=== PATIENT | female | born 1940 | race Native Hawaiian/Other Pacific Islander ===

== ENCOUNTER 2016-12-25 18:45 | Inpatient (IN) | payer OTHER ==
[2016-12-25] MEDS ORDERED: Ipratropium 0.02% Inhal Soln (0.5 mg/2.5 ml) UD IH STA ×2 (19:12→20:58)
[2016-12-25] MEDS ORDERED: Levalbuterol 1.25 MG/3 ML Inhal Soln UD IH STA (19:12)
[2016-12-25] MEDS ORDERED: Sodium Chloride 0.9% 1,000 ML IV STA (19:12)
--- NOTE | 2016-12-25 19:12 | ED PDOC ---
Arrival/HPI - General Chief Complaint: Shortness Of Breath Time Seen by Provider: 12/25/16 18:52 Historian: Patient - History of Present Illness Narrative History of Present Illness (Text): 12/25/16 19:07 Criss Lopez is a 76 year old female, whose past medical history includes asthma and remote history of hypertension and angina, not on any medication, who presents to the ED complaining of cough since yesterday. Patient also reports associated shortness of breath and some chills. Patient denies any fever , chest pain, lower extremity swelling, nausea, vomiting, diarrhea, urinary symptoms, back pain, neck pain, headache, dizziness, or any other complaints. Patient is visiting daughter from [place]. Time/Duration: Other (yesterday) Symptom Onset: Gradual Symptom Course: Unchanged Activities at Onset: Rest, Light Context: Home Past Medical History - Provider Review Nursing Documentation Reviewed: Yes - Infectious Disease Hx of Infectious Diseases: None - Reproductive Menopause: Yes - Pulmonary Hx Asthma: Yes - Psychiatric Hx Substance Use: No - Surgical History Other/Comment: x 2, sinus sx - Anesthesia Hx Anesthesia: Yes Hx Anesthesia Reactions: No Hx Malignant Hyperthermia: No Family/Social History - Physician Review Nursing Documentation Reviewed: Yes Family/Social History: No Known Family HX Smoking Status: Never Smoked Hx Alcohol Use: No Hx Substance Use: No Allergies/Home Meds Allergies/Adverse Reactions: Allergies No Known Allergies Allergy (Verified 12/25/16 18:54) Home Medications: Home Meds Medication Instructions Recorded Confirmed No Known Home Med 12/25/16 12/25/16 Review of Systems - Physician Review All systems were reviewed & negative as marked: Yes - Review of Systems Constitutional: Other (+chills) Eyes: Normal ENT: Normal Respiratory: SOB, Cough Cardiovascular: absent: Chest Pain Gastrointestinal: absent: Abdominal Pain, Diarrhea, Nausea, Vomiting Genitourinary Female: Normal. absent: Dysuria, Frequency, Hematuria, Urine Output Changes Musculoskeletal: Normal. absent: Back Pain, Neck Pain Skin: Normal. absent: Rash Neurological: Normal. absent: Headache, Dizziness Endocrine: Normal Hemo/Lymphatic: Normal Psychiatric: Normal Physical Exam Vital Signs Reviewed: Yes Vital Signs Temp Pulse Resp BP Pulse Ox 12/25/16 20:34 99 F 78 20 122/78 99 12/25/16 19:54 101.4 F H 12/25/16 19:13 101.4 F H 12/25/16 19:00 19 12/25/16 18:53 99.3 F 102 H 18 127/78 100 Temperature: Afebrile Blood Pressure: Normal Pulse: Tachycardic Respiratory Rate: Tachypneic (mild) Appearance: Positive for: Well-Appearing, Non-Toxic, Comfortable Pain Distress: None Mental Status: Positive for: Alert and Oriented X 3 - Systems Exam Head: Present: Atraumatic, Normocephalic Pupils: Present: PERRL Conjunctiva: Present: Normal Mouth: Present: Moist Mucous Membranes Pharnyx: Present: Normal. No: ERYTHEMA Neck: Present: Normal Range of Motion Respiratory/Chest: Present: Wheezes (Some scattered wheezing bilaterally), Rhonchi (Occasional rhonchi), Tachypneic (minimal). No: Accessory Muscle Use Cardiovascular: Present: Normal S1, S2, Tachycardic. No: Murmurs Abdomen: Present: Normal Bowel Sounds. No: Tenderness, Distention, Peritoneal Signs Back: Present: Normal Inspection Upper Extremity: Present: Normal Inspection. No: Cyanosis, Edema Lower Extremity: Present: Normal Inspection. No: Edema Neurological: Present: GCS=15, CN II-XII Intact, Speech Normal Skin: Present: Warm, Dry, Normal Color. No: Rashes Psychiatric: Present: Alert, Oriented x 3, Normal Insight, Normal Concentration Medical Decision Making ED Course and Treatment: 12/25/16 19:07 Impression: 76 year old female complaining of cough, difficulty breath, and chills since yesterday. Plan: -- EKG -- CXR -- Labs, VBG, BNP, cardiac enzymes, lipase, blood cultures -- Urinalysis, urine cultures -- Rapid influenza -- IV fluids -- Tylenol -- Xoponex -- Atrovent -- Solu-medrol -- Reassess and disposition Progress Notes: Reviewed EKG, NSR at [address]-segment elevations or depressions, no T-wave inversions, normal intervals. Normal axis. 12/25/16 20:14 Reviewed radiology, Chest X-ray shows no active disease. 12/25/16 20:55 Patient's labs and CXR are unremarkable. She is continuing to wheeze despite nebs and steroids and presented with underlying fever. Will need further observation in the hospital. Case discussed with Dr. Stovall, who is aware and agrees with plan. Accepts pt in to her service. Pt will go to [facility] observation for asthma exacerbation and fever. - Lab Interpretations Lab Results: 12/25/16 19:35 12/25/16 19:35 Lab Results 12/25/16 19:40: pO2 55, VBG pH 7.36, VBG pCO2 52.0, VBG HCO3 29.4 H, VBG Total CO2 31.0 H, VBG O2 Sat (Calc) 89.0 H, VBG Base Excess 2.8 H, VBG Potassium 3.5 L , Sodium 137.0, Chloride 103.0, Glucose 102, Lactate 1.3, FiO2 21.0, Venous Blood Potassium 3.5 L 12/25/16 19:35: WBC 6.6, RBC 4.28, Hgb 12.7, Hct 37.5, MCV 87.6, MCH 29.7, MCHC 33.9, RDW 12.8, Plt Count 172, MPV 9.2, Gran % 85.5 H, Lymph % (Auto) 7.3 L, Bryan % (Auto) 5.2, Eos % (Auto) 1.7, Baso % (Auto) 0.3, Gran # 5.61, Lymph # 0.5 L, Bryan # 0.3, Eos # 0.1, Baso # 0.02, ESR Pending, PT 10.5, INR 0.97, APTT 29.0, Sodium 133, Chloride 98, Potassium 3.5 L, Carbon Dioxide 28, Anion Gap 11 , BUN 15, Creatinine 0.8, Est GFR ( Amer) > 60, Est GFR (Non-Af Amer) > 60, Random Glucose 104, Calcium 8.9, Phosphorus 3.1, Magnesium 1.8, Total Bilirubin 0.5, AST 31, ALT 17, Alkaline Phosphatase 75, Lactate Dehydrogenase 433, Total Creatine Kinase 149, Troponin I 0.01, NT-Pro-B Natriuret Pep 147, Total Protein 7.0, Albumin 3.8, Globulin 3.1, Albumin/Globulin Ratio 1.2, Lipase 102, Plasma Cortisol PM Pending 12/25/16 19:30: Influenza Typ A,B (EIA) Negative for flu a/b I have reviewed the lab results: Yes - RAD Interpretation Radiology Orders: 12/25/16 18:58 CHEST PORTABLE [RAD] Stat Chief Engineering Division: ED Physician - EKG Interpretation Interpreted by ED Physician: Yes Type: 12 lead EKG - Medication Orders Current Medication Orders: Azithromycin 500 mg/ (Azithromycin) 250 mls @ 167 mls/hr IVPB STAT STA PRN Reason: Protocol Stop: 12/25/16 22:28 Ceftriaxone Sodium (Rocephin 1 Gram Ivpb) 100 mls @ 200 mls/hr IV ONCE STA PRN Reason: Protocol Stop: 12/25/16 21:28 Methylprednisolone (Solu-Medrol) 60 mg IVP Q8H FIGUEROA Discontinued Medications Acetaminophen (Tylenol 325mg Tab) 975 mg PO STAT STA Stop: 12/25/16 19:13 Last Admin: 12/25/16 19:54 Dose: 975 MG MAR Pain/Vitals Document 12/25/16 19:54 R (Rec: 12/25/16 19:54 R [id number]) Vitals Temperature (97.6 F-99.6 F) 101.4 F Temperature Source Rectal Sodium Chloride (Sodium Chloride 0.9%) 1,000 mls @ 999 mls/hr IV .Q1H1M STA Stop: 12/25/16 20:12 Last Admin: 12/25/16 19:53 Dose: 999 MLS/HR eMAR Start Stop Document 12/25/16 19:53 RJR (Rec: 12/25/16 19:53 R [id number]) Intravenous Solution Start Date 12/25/16 Start Time 19:53 End Date 12/25/16 End time 21:53 Total Infusion Time 120 Ipratropium [place] (Atrovent) 0.5 mg IH STAT STA Stop: 12/25/16 19:13 Last Admin: 12/25/16 19:53 Dose: 0.5 MG Ipratropium [place] (Atrovent) 0.5 mg IH STAT STA Stop: 12/25/16 20:59 Levalbuterol HCl (Xopenex) 1.25 mg IH STAT STA Stop: 12/25/16 19:13 Last Admin: 12/25/16 19:54 Dose: 1.25 MG Levalbuterol HCl (Xopenex) 0.63 mg IH ONCE STA Stop: 12/25/16 20:59 Methylprednisolone (Solu-Medrol) 125 mg IVP STAT STA Stop: 12/25/16 19:13 Last Admin: 12/25/16 19:54 Dose: 125 MG IVP Administration Document 12/25/16 19:54 SIMON (Rec: 12/25/16 19:54 [email or web address] [id number]) Charges for Administration # of IVP Administrations 1 Potassium Chloride (Potassium Chloride Oral Soln) 40 meq PO STAT STA Stop: 12/25/16 20:58 - Scribe Statement The provider has reviewed the documentation as recorded by the Scribe Odalis Almanza All medical record entries made by the Scribe were at my direction and personally dictated by me. I have reviewed the chart and agree that the record accurately reflects my personal performance of the history, physical exam, medical decision making, and the department course for this patient. I have also personally directed, reviewed, and agree with the discharge instructions and disposition. Disposition/Present on Arrival - Present on Arrival Any Indicators Present on Arrival: No History of DVT/PE: No History of Uncontrolled Diabetes: No Urinary Catheter: No History of Decub. Ulcer: No History Surgical Site Infection Following: None - Disposition Have Diagnosis and Disposition been Completed?: Yes Diagnosis: Exacerbation of asthma, Fever Disposition: HOSPITALIZED Disposition Time: 21:10 Patient Plan: Observation Condition: FAIR
[2016-12-25 19:55] LABS: ADD MANUAL DIFF? NO
[2016-12-25 19:58] LABS: VENOUS BLOOD GAS BASE EXCESS 2.8 mmol/L (0.0-2.0); VENOUS BLOOD PH 7.36 (7.32-7.43)
[2016-12-25 19:59] LABS: BASO # 0.02 K/mm3 (0.0-2.0); BASO % 0.3 % (0.0-3.0); EOS # 0.1 (0.0-0.7); EOS % 1.7 % (1.5-5.0); GRAN # 5.61 (1.4-6.5); GRAN % 85.5 % (50.0-68.0); HEMATOCRIT 37.5 % (36.0-48.0); LYMPH # 0.5 (1.2-3.4); LYMPH % 7.3 % (22.0-35.0); MEAN CELL VOLUME 87.6 fL (80.0-105.0); MEAN CORPUSCULAR HEMOGLOBIN 29.7 pg (25.0-35.0); MEAN CORPUSCULAR HGB CONC 33.9 g/dl (31.0-37.0); MEAN PLATELET VOLUME 9.2 fl (7.0-11.0); MONO # 0.3 (0.1-0.6); MONO % 5.2 % (1.0-6.0); PLATELET COUNT 172 10^3/uL (120.0-450.0); RED CELL DISTRIBUTION WIDTH 12.8 % (11.5-14.5); WHITE BLOOD COUNT 6.6 10^3/ul (4.5-11.0)
[2016-12-25 20:10] LABS: ALB/GLOB RATIO 1.2 (1.1-1.8); ALKALINE PHOSPHATASE 75 U/L (38-133); ALT/SGPT 17 U/L (7-56); AST/SGOT 31 U/L (15-39); BILIRUBIN,TOTAL 0.5 mg/dL (0.2-1.3); BLOOD UREA NITROGEN 15 mg/dL (7-21); CALCIUM 8.9 mg/dL (8.4-10.5); CARBON DIOXIDE 28 mmol/L (21-33); CHLORIDE 98 mmol/L (98-107); GFR AFRICAN-AMERICAN > 60; GLUCOSE,RANDOM 104 mg/dL (70-110); INR 0.97 (0.93-1.08); LIPASE 102 U/L (23-300); MAGNESIUM 1.8 mg/dL (1.7-2.2); PHOSPHOROUS 3.1 mg/dL (2.5-4.5); POTASSIUM 3.5 mmol/L (3.6-5.0); SODIUM 133 mmol/L (132-148)
[2016-12-25 20:23] LABS: TROPONIN I 0.01 ng/mL
[2016-12-25] MEDS ORDERED: Potassium Chloride 40 mEq/30 ml LIQ UD PO STA (20:57)
[2016-12-25] MEDS ORDERED: Levalbuterol 0.63 MG/3 ML Inhal Soln UD IH STA (20:58)
[2016-12-25] MEDS ORDERED: cefTRIAXone 1 gm 100 ML IV STA (20:59)
[2016-12-25] MEDS ORDERED: Azithromycin 500 MG in Azithromycin 500MG/NS 250ml 250 ML IVPB STA (20:59)
[2016-12-25] MEDS ORDERED: Levalbuterol 1.25 MG/3 ML Inhal Soln UD IH PRN (21:02)
[2016-12-25 21:10] LABS: ERYTHROCYTE SEDIMENTATION RATE 14 mm/hr (0.0-20.0)
[2016-12-26] MEDS ORDERED: MethylPREDNISolone 40 mg Vial IVP SCH (03:00)
[2016-12-26] MEDS ORDERED: guaiFENesin 100 mg/5 ml Syrup UD PO ONE (05:59)
--- NOTE | 2016-12-26 08:44 | CARD ---
APPROVED REPORT EKG Measurement Heart [id number] <Conclusion> Normal sinus rhythm Possible Left atrial enlargement Nonspecific T wave abnormality Abnormal ECG
--- NOTE | 2016-12-26 08:58 | RAD ---
PROCEDURE: CHEST RADIOGRAPH, 1 VIEW HISTORY: chills, cough COMPARISON: None available. FINDINGS: LUNGS: Clear. PLEURA: No pneumothorax or pleural fluid seen. CARDIOVASCULAR: Normal. OSSEOUS STRUCTURES: No significant abnormalities. VISUALIZED UPPER ABDOMEN: Normal. OTHER FINDINGS: None. IMPRESSION: No active disease.
[2016-12-26] MEDS: guaiFENesin 100 mg/5 ml Syrup UD PO PRN ×2 (10:04→18:01)
[2016-12-26] MEDS ORDERED: Azithromycin 500 MG in Sodium Chloride 0.9% 250 ML IV SCH (10:30)
[2016-12-26 10:31] LABS: URINE APPEARANCE CLEAR (CLEAR); URINE BILIRUBIN NEGATIVE (NEGATIVE); URINE BLOOD NEGATIVE (NEGATIVE); URINE COLOR YELLOW (YELLOW); URINE GLUCOSE (UA) NEGATIVE (NEGATIVE); URINE KETONE NEGATIVE (NEGATIVE); URINE LEUKOCYTE ESTERASE NEGATIVE Leu/uL (NEGATIVE); URINE PROTEIN NEGATIVE mg/dL (<30 mg/dL); URINE UROBILINOGEN 0.2 E.U./dL (<1 E.U./dL)
[2016-12-26] MEDS: cefTRIAXone 1 gm 100 ML IVPB SCH (10:57)
[2016-12-26] MEDS: Sodium Chloride 0.45% 1,000 ML IV SCH (10:58)
[2016-12-26] MEDS: Levalbuterol 0.63 MG/3 ML Inhal Soln UD IH SCH ×2 (13:28→20:40)
--- NOTE | 2016-12-26 21:31 | HP ---
HISTORY OF PRESENT ILLNESS: This 76-year-old female was examined at her bedside in the presence of her daughter. She is a 76-year-old female visiting the local area and family, she resides in a suburb of [place], [place]. She has a past medical history of asthmatic bronchitis who presented to the [facility] ER complaining of cough, chills and productive cough. She was noted to have expiratory wheezing and was admitted for further evaluation of the above. On further questioning of the patient, she has no history of any active hypertension, diabetes or hyperlipidemia. She denied any knowledge of cardiopulmonary disease and states that she has previous asthmatic bronchitis and attempted to use her grandchild's nebulizer with no positive response. As a result, she presented to the [facility] ER for further evaluation of the above. REVIEW OF SYSTEMS: HEAD: No headache or seizures. EYES: No change in visual acuity. EARS: No hearing loss. THROAT: No swallowing difficulty. NECK: No stiffness. CARDIOVASCULAR: Denied any chest pain, angina or myocardial infarction. PULMONARY: No hemoptysis. GASTROINTESTINAL: No hematemesis, no melena. GENITOURINARY: No dysuria. SKIN: No rash. VASCULAR: No claudication. PSYCHOLOGICAL: No anxiety. NEUROLOGICAL: No knowledge of stroke. SOCIAL HISTORY: She is a nondrinker, nonsmoker, non-IV drug misuser. FAMILY HISTORY: Not contributory. ALLERGIES: She denied any allergies to medications. MEDICATIONS: States she takes no medication as an outpatient. PAST SURGICAL HISTORY: Significant for x 2. PHYSICAL EXAMINATION: VITAL SIGNS: Temperature 98.5, respirations 20, pulse 73, blood pressure 105/ 59 with a pulse ox of 99% on room air. HEENT: Normocephalic, atraumatic. Eyes: No icterus. Ears clear. Throat not injected. NECK: Supple. HEART: Regular S1, S2. LUNGS: With occasional rhonchi and expiratory wheezing that clear on coughing, audible in the posterior lung roger. ABDOMEN: Soft, nontender, no palpable organomegaly. EXTREMITIES: No clubbing, no cyanosis, no edema. SKIN: Without rash. NEUROLOGIC: Intact. PSYCHOLOGICAL: Alert. VASCULAR: Legs warm to touch. LABORATORY DATA: White count 6,600; hemoglobin 12.7; hematocrit 37.5; platelets 172,000. PT/INR 0.97, PTT 29.0. Sodium 133, K 3.5, chloride 98, bicarbonate 28, BUN 11, creatinine 0.8, random blood sugar 104. Magnesium normal at 1.8. All liver function testing was normal including bilirubin 0.5, AST 31, ALT 17, alkaline phosphatase 75. CPK normal at 149, troponin normal at 0.01. Lipase normal at 102. Urinalysis unremarkable. Influenza A and B negative. EKG normal sinus rhythm with nonspecific ST-T wave changes. Chest x- ray showed no infiltrate. IMPRESSION: This is a 76-year-old female with asthmatic bronchitis who presented to the ER with a fever and was noted to have expiratory wheezing, history of asthmatic bronchitis in her past, on no outpatient medication. PLAN: The patient has been cultured blood and urine, awaiting microbiology results. She will be treated empirically with Rocephin 1 gram IV q. 24, Zithromax 500 mg IV q. 24, 0.45 saline at 60 mL per hour. She was given 1 dose of potassium chloride and will have a repeat potassium level in the a.m. She is on Solu-Medrol 60 mg IV q. 8, Xopenex inhalational therapy 0.63 mg t.i.d. She is ordered to have a heart healthy diet. We will await the results of her blood and urine cultures, repeat potassium level in the a.m. and check microbiology studies on urine and blood cultures. All of this was discussed in detail with the patient and her daughter at the bedside and ultimate plan will be for discharge to home when medically stable. Greater than 50 minutes was spent in the care, coordination of care, discussion of care, and review of this patient's medical record. Naye Stovall MD cc: [id number] TT: 12/26/2016 21:31:15 joseph FERRARO
[2016-12-27] MEDS: guaiFENesin 100 mg/5 ml Syrup UD PO PRN (03:29)
[2016-12-27] MEDS: Levalbuterol 0.63 MG/3 ML Inhal Soln UD IH SCH ×3 (07:34→19:35)
[2016-12-27] MEDS ORDERED: MethylPREDNISolone 40 mg Vial IV ONE (08:45)
[2016-12-27] MEDS: cefTRIAXone 1 gm 100 ML IVPB SCH (09:44)
[2016-12-27] MEDS: Azithromycin 500MG/NS 250ml 250 ML IVPB SCH (09:45)
--- NOTE | 2016-12-27 10:15 | PN ---
DATE: 12/27/2016 SUBJECTIVE: This 76-year-old female was examined at her bedside in the presence of her nurse. She still has a productive cough of yellowish sputum and has persistent but slightly improved expiratory wheezing. She remains anxious. She is tolerating diet and medication well. PHYSICAL EXAMINATION: VITAL SIGNS: Temperature was 97.7, respirations 20, pulse 96 and blood pressure 119/71 with a pulse ox of 99% on room air. HEAD: Normocephalic, atraumatic. EYES: No icterus. EARS: Clear. THROAT: Noninjected. NECK: Supple. HEART: Regular S1, S2. LUNGS: With rhonchi and expiratory wheezing that clear with coughing on the posterior lung roger. ABDOMEN: Soft, nontender. No palpable organomegaly. EXTREMITIES: No clubbing, no cyanosis, no edema. SKIN: Without rash. NEUROLOGIC: Unchanged. PSYCHOLOGICAL: Alert and anxious. VASCULAR: Legs warm to touch. LABORATORY DATA: White count 6600, hemoglobin 12.7, hematocrit 37.5, platelets 172,000. Repeat potassium normal, 3.6. Urine unremarkable. Influenza A and B serology negative. Blood cultures x 2, no growth at 24 hours. IMPRESSION: A 76-year-old female with asthmatic bronchitis. PLAN: To continue heart healthy bland diet, 0.45 saline at 60 mL per hour, Robitussin 5 mL p.o. q. 6 hours p.r.n. cough, Rocephin 1 gram IV q. 24, Zithromax 500 mg IV q. 24, Solu-Medrol 40 mg IV q. 8 and Xopenex inhalational therapy 0.63 mg inhalational t.i.d. She is allowed out of bed with assistance. I will order fall and aspiration precautions. I will order physical therapy for ambulation safety. The patient will continue to require parenteral medication until the wheezing resolves. All of this has been discussed in detail with the patient and her nurse at her bedside. Naye Stovall MD cc: [id number] TT: 12/27/2016 10:14:38 Confirmation # [id number] Dictation # [id number] joseph FERRARO
[2016-12-27] MEDS: MethylPREDNISolone 40 mg Vial IV SCH ×2 (14:02→22:14)
[2016-12-28] MEDS: Sodium Chloride 0.45% 1,000 ML IV SCH ×2 (05:10→15:35)
[2016-12-28] MEDS: MethylPREDNISolone 40 mg Vial IV SCH (06:31)
[2016-12-28] MEDS: Levalbuterol 0.63 MG/3 ML Inhal Soln UD IH SCH ×3 (07:16→20:22)
[2016-12-28] MEDS: cefTRIAXone 1 gm 100 ML IVPB SCH (09:14)
[2016-12-28] MEDS: Azithromycin 500MG/NS 250ml 250 ML IVPB SCH (11:33)
[2016-12-28] MEDS: MethylPREDNISolone 40 mg Vial IVP SCH ×2 (11:33→22:02)
--- NOTE | 2016-12-28 12:07 | PN ---
DATE: 12/28/2016 SUBJECTIVE: This 76-year-old female was examined at her bedside. Her case was reviewed with her javed se Linda Fallon. The patient remains with cough and congestion. She has a persistent expiratory wh eeze, but denies any fever, chills, or change in appetite, and states she is starting to feel stronge r every day. PHYSICAL EXAMINATION: VITAL SIGNS: She is in a normal sinus rhythm on the monitor. Temperature 98, respirations 17, pulse 73, and blood pressure 125/85 with a pulse ox of 98% on room air. HEAD: Normocephalic, atraumatic. EYES: No icterus. EARS: Clear. THROAT: Noninjected. NECK: Supple. HEART: Regular S1, S2. LUNGS: With rhonchi and wheezing that clear with coughing and the wheezing is on expiration. ABDOMEN: Soft. EXTREMITIES: No edema. SKIN: Without rash. NEUROLOGIC: Intact. PSYCHOLOGICAL: Alert. VASCULAR: Legs warm to touch. LABORATORY DATA: White count 6600, hemoglobin 12.7, hematocrit 37.5, platelets 172,000. Potassium 3 .6. Cortisol level was normal at 5.4. Urinalysis was unremarkable. Influenza A and B serology was negative. Blood cultures x 2 show no growth at 48 hours and urine culture shows no growth. IMPRESSION: A 76-year-old female with asthmatic bronchitis, persistent cough and slowly improving ex piratory wheezing. PLAN: At present is to continue 0.45 saline at 60 mL per hour, Rocephin 1 gram IV q. 24. Solu-Medr ol 30 mg IV q. 12, Xopenex inhalational therapy 0.63 mg t.i.d., Zithromax 500 mg IV daily, Robitussi n 5 mL p.o. q. 6 hours. The patient continues on a heart healthy diet. Aspiration and fall precauti ons. She is ordered to have physical therapy for ambulation and ultimate plan will be for discharge to home when medically stable. All of this was discussed in detail with the patient and her nurse at the bedside. Her prognosis is stable at present. Naye Stovall MD cc: [id number] TT: 12/28/2016 12:07:20 Confirmation # [id number] Dictation # [id number] jn
[2016-12-28] MEDS: guaiFENesin 100 mg/5 ml Syrup UD PO PRN ×2 (15:37→20:39)
[2016-12-28] MEDS ORDERED: Nystatin 100,000 Units/gm Cream(15 gm) TOP STA (17:23)
[2016-12-29] MEDS: Levalbuterol 0.63 MG/3 ML Inhal Soln UD IH SCH ×3 (07:28→19:36)
[2016-12-29] MEDS: cefTRIAXone 1 gm 100 ML IVPB SCH (09:47)
[2016-12-29] MEDS: Sodium Chloride 0.45% 1,000 ML IV SCH (09:47)
[2016-12-29] MEDS: Nystatin 100,000 Units/gm Cream(15 gm) TOP SCH ×3 (09:49→23:30)
[2016-12-29] MEDS: MethylPREDNISolone 40 mg Vial IVP SCH ×2 (09:49→21:21)
--- NOTE | 2016-12-29 10:44 | PN ---
DATE: 12/29/2016 This 76-year-old female was examined at her bedside. Her case was reviewed with her nurse and the pa laura in detail. The patient has a cough but states that it is improving and her expiratory wheezing is diminished. She denies any fever or chills and is tolerating diet and medication. PHYSICAL EXAMINATION: VITAL SIGNS: Temperature 98, respirations 20, pulse 57, blood pressure 132/78 with a pulse ox of 99% . HEAD: Normocephalic, atraumatic. EYES: No icterus. EARS: Clear. THROAT: Noninjected. NECK: Supple. HEART: Regular S1, S2. LUNGS: With occasional rhonchi that clear with coughing. ABDOMEN: Soft. EXTREMITIES: No edema. SKIN: Without rash. NEUROLOGIC: Intact. PSYCHOLOGICAL: Alert. VASCULAR: Feet warm to touch. LABORATORY DATA: White count 6600, hemoglobin 12.7, hematocrit 37.5, platelets 172,000. Repeat pota ssium 3.6. All liver function testing is normal including bilirubin 0.5, AST 31, ALT 17, alkaline ph osphatase 75, bilirubin 0.5. Urinalysis was unremarkable. Influenza A and B serology was negative. IMPRESSION: A 76-year-old female with asthmatic bronchitis. PLAN: At present is to continue IV Zithromax 500 mg IV daily, Rocephin 1 gram IV daily. She continu es on Solu-Medrol taper of 30 mg IV q. 12. She is receiving 0.45 saline at 60 mL per hour and Robitu ssin 5 mL p.o. q. 6 hours p.r.n. cough. She continues on a heart healthy diet, aspiration and fall p recautions. She is being ambulated with physical therapy and the ultimate plan will be for discharge to home when medically improved for followup with her PMD as an outpatient. Naye Stovall MD cc: [phone] TT: 12/29/2016 10:44:05 Confirmation # [id number] Dictation # [id number] joseph
[2016-12-29] MEDS: Azithromycin 500MG/NS 250ml 250 ML IVPB SCH (11:34)
[2016-12-29 17:12] VITALS: RESP 18
[2016-12-29] MEDS: guaiFENesin 100 mg/5 ml Syrup UD PO PRN (21:23)
[2016-12-30] MEDS: Nystatin 100,000 Units/gm Cream(15 gm) TOP SCH (07:41)
[2016-12-30] MEDS: Levalbuterol 0.63 MG/3 ML Inhal Soln UD IH SCH (07:42)
[2016-12-30 08:00] LABS: BLOOD UREA NITROGEN 19 mg/dL (7-21); CALCIUM 8.8 mg/dL (8.4-10.5); CARBON DIOXIDE 27 mmol/L (21-33); CHLORIDE 100 mmol/L (98-107); GFR AFRICAN-AMERICAN > 60; GLUCOSE,RANDOM 118 mg/dL (70-110); POTASSIUM 4.4 mmol/L (3.6-5.0); SODIUM 135 mmol/L (132-148)
[2016-12-30 08:24] VITALS: BP 136/81; PULSE 60; TEMP 98; O2SAT 95
[2016-12-30] MEDS: cefTRIAXone 1 gm 100 ML IVPB SCH (09:13)
[2016-12-30] MEDS: MethylPREDNISolone 40 mg Vial IVP SCH (09:13)
[2016-12-30] MEDS: Azithromycin 500MG/NS 250ml 250 ML IVPB SCH (09:14)
--- NOTE | 2016-12-30 11:52 | DS ---
FINAL DIAGNOSIS: Asthmatic bronchitis, improved. DISPOSITION: Home. FOLLOWUP: With her PMD. The patient was recommended to have screening colonoscopy, which has not been done in her medical history, upon her return to [place] at convenient time with her private physician coordinating this screening test. DISCHARGE DIET: Heart-healthy soft bland. DISCHARGE MEDICATIONS: Include: 1. Zithromax Z-Sung. 2. Medrol Dosepak. 3. Robitussin 5 mL p.o. q. 6 hours p.r.n. cough. 4. Albuterol inhaler 1 puff q. 6 hours p.r.n. SUMMARY: This 76-year-old female was admitted to [facility] with cough, congestion, and expiratory wheezing in the clinical setting of asthmatic bronchitis. The patient was admitted, fully cultured, had a chest x-ray that showed no evidence of pneumonia, and the patient was treated supportively with IV fluids, IV antibiotics, inhalational therapy with Xopenex, Robitussin, and IV Solu-Medrol taper, as well as IV Rocephin, and IV Zithromax. Her blood culture showed no growth after 4 days, and urine culture was unremarkable as well. The patient tolerated diet and medication, and at the time of discharge, was ambulating independently with no shortness of breath, no wheezing, and vital signs were 98, respirations 18, pulse 60, and blood pressure 136/81 with a pulse ox of 95% on room air. DISCHARGE LABS: Showed white count 6600, hemoglobin 12.7, hematocrit 37.5, platelets 172,000. Her sodium was 135, K 4.4, chloride 100, bicarb 27, BUN 19, creatinine 0.6, random blood sugar 118. Influenza A and B serologies were negative. All of her instructions were clearly explained to her, and the nurse reviewed them with her as well - nurse Sunny Castillo. Hopefully, she will be compliant with her medication and followup with her PMD as outlined. Naye Stvoall MD cc: [id number] TT: 12/30/2016 11:51:27 jn RONAN
[2016-12-30] MEDS ORDERED: Pneumococcal 23-Valent Vaccine IM ONE (12:09)
== END 2016-12-30 13:08 | disposition home or self-care (01) | DRG 203 ==
LOC: ED 18:45 → ERH 20:58 → 3RSO 22:08 → OBSVTOIN 12-26 10:25
PROVIDERS: ADMIT Internal Medicine; ATTEND Internal Medicine
PROC: 3E0234Z Introduction of Serum, Toxoid and Vaccine into Muscle, Percutaneous Approach (ICD-10-PCS; principal; 2016-12-30)
DX: J45.901 Unspecified asthma with (acute) exacerbation (principal); R00.0 Tachycardia, unspecified; R40.2412 Glasgow coma scale score 13-15, at arrival to emergency department; Z86.79 Personal history of other diseases of the circulatory system; Z23 Encounter for immunization